=== PATIENT | female | born 1950 | race Caucasian/White ===

== ENCOUNTER → 2025-02-22 14:40 | Outpatient (REF) | payer MEDICARE, SELFPAY | LOC: RCS 14:40 | PROVIDERS: ATTENDING PHYSICIAN Internal Medicine Cardiovascular Disease | DX: I77.810 Thoracic aortic ectasia (principal); Q23.81 Bicuspid aortic valve; I65.23 Occlusion and stenosis of bilateral carotid arteries; I50.32 Chronic diastolic (congestive) heart failure; E78.5 Hyperlipidemia, unspecified; Z51.81 Encounter for therapeutic drug level monitoring; I10 Essential (primary) hypertension; R01.1 Cardiac murmur, unspecified; I51.7 Cardiomegaly; I35.0 Nonrheumatic aortic (valve) stenosis; R94.31 Abnormal electrocardiogram [ECG] [EKG]; Z79.82 Long term (current) use of aspirin; Z29.89 Encounter for other specified prophylactic measures; Z95.3 Presence of xenogenic heart valve; Z71.3 Dietary counseling and surveillance | CPT/HCPCS: 93306 ==